=== PATIENT | female | born 1930 | race Caucasian/White ===

== ENCOUNTER 2016-11-17 15:28 | Inpatient (IN) ==
[2016-11-19] MEDS ORDERED: HALOPERIDOL 5 MG/ML INJECTION IVP PRN (05:00)
[2016-11-19] MEDS: D5-1/2NS 1,000 ML IV SCH ×2 (05:56→19:55)
[2016-11-19] MEDS: PANTOPRAZOLE 40 MG INJECTION IV SCH (09:25)
--- NOTE | 2016-11-19 10:54 | Progress Note ---
Subjective: Pt was comfortably sleeping with no respiratory distress or drolling. No stridor. Woke up and appear to be feeling pretty well. No complaints. Objective Vital signs: Temp Pulse Resp BP Pulse Ox 95.8 F L 69 14 140/65 H 95 11/19/16 08:00 11/19/16 08:00 11/19/16 08:00 11/19/16 08:00 11/19/16 08:00 Rhythm: Normal Sinus Rhythm Weight: 64.2 kg - Constitutional Present: no acute distress - Routine HEENT Exam Head: Present: normocephalic, atraumatic Eye: Present: EOMI ENT: Present: mucous membranes moist, oropharynx clear Comments: No stridor, no pooling of saliva. - Routine Respiratory Exam Absent: accessory muscle use, stridor, wheezes, crackles - Routine Cardiovascular Exam Present: RRR - Routine Abdominal Exam Present: soft - Routine Extremities Exam Absent: cyanosis, clubbing, edema, no edema - Routine Musculoskeletal Exam Musculoskeletal: no clubbing or cyanosis - Routine Skin Exam Present: intact - Routine Neurological Exam Present: alert, moving all extremities Pt noted to have advanced dementia. - Routine Psychiatric Exam Present: normal affect Results - Labs CBC & Chem 7: 11/19/16 04:29 11/19/16 04:29 Labs: Short CBC 11/17/16 11/19/16 Range/Units 14:20 04:29 WBC 9.2 7.4 (4.5-11.0) T/MM3 Hgb 10.5 L 11.0 L (12-16) GM/DL Hct 34.0 L 35.2 L (36-46) % Plt Count 245 226 (130-400) T/MM3 [facility] 11/17/16 11/18/16 11/19/16 14:20 04:32 04:29 Sodium 146 H 144 146 H Potassium 4.6 4.1 3.9 Chloride 109 H 107 107 Carbon Dioxide 26 28 30 BUN 28.0 H 19.0 H 9.0 Creatinine 1.5 H 1.2 D 1.2 Glucose 115 H 106 99 Calcium 8.8 8.6 8.9 Liver Function 11/17/16 Range/Units 14:20 Total Bilirubin 0.30 (0.20-1.30) MG/DL AST 18 (14-36) U/L ALT 31 (9-52) U/L Alkaline Phosphatase 118 (38-126) U/L Albumin 3.6 (3.5-5.0) G/DL Urine 11/17/16 Range/Units 14:20 Urine Color Yellow (YELLOW) Urine pH 5.5 (5.0-8.0) Ur Specific Royal 1.020 (1.015-1.025) Urine Protein Negative (NEGATIVE) Urine Glucose (UA) Negative (NEGATIVE) Assessment and Plan Assessment and Plan: This is an 86 YO that at some time swallowed a coin, and came to the ED for agitation. On initial exam pt was actually very pleasant and cooperative. She exibited profound memmory loss - C/W H/O dementia. She was not agitated or combative. She had no symptoms or signs of infection or of upper airway compromise. She had the foreign body removed by GI on 11/17 (Apparently a coin). CT soft tissues (Neck) done on 11/18 - showed upper esophageal thickening with narrowing of the lumen. Pt has not had any signs or symptoms of any upper airway compromise at present. Pt appears to be very comfortable. Diagnosis 1) S/P Removal of Foreign body on the upper esophagus. Pt has some upper esophageal thickening which is more likely due to inflammation, probably due to the foreign body - Pt apparently has also a hiatal hernia so this could also be related to GERD Plan - Cotinue with IV PPI - Close observation and monitoring for upper airway patency and possibility of infection. - Continue IV hydration. - Will check a Esophagogram with gastrograffin today. 2) HTN and has bene on Clonidine PO and ARB - On Clonidine patch BP is normal today. 3) Dementia, advanced reported "With behavioral disturbances" on admission but pt has been very calm and cooperative here. Pt has also H.O Bipolar dissorder so will renew Depakote once pt is re-imaged IF swelling is less. - Pt has been on low dose Depakote. and other medications for her dementia that have no IV equivalent. - Depakote level on admission was not on therepeutic range (50 - 100 usually) 4) Hypernatremia - improved with IVF 5) Elevated creatinine - improved with IVF. 6)FULL CODE PER DPOA. Sepsis Assessment - Evaluation Sepsis screening result: No Definite Risk - Focused Exam Vital Signs Temp Pulse Resp BP Pulse Ox 11/19/16 08:00 95.8 F L 69 14 140/65 H 95 Capillary refill: < 2-3 Seconds Hospital Course Summary Disclaimer: The visit summary below is not to be considered part of the above Progress Note.
[2016-11-19] MEDS ORDERED: DIATRIZOATE MEGLUMINE/SOD. (66%/10%) 120ml SOLN ONE (11:33)
--- NOTE | 2016-11-19 15:26 | Fluoroscopy Report ---
Indication:abnormal upper esophagus in soft tissue neck. Procedure:FL esophagram ESOPHAGRAM: Technique:The patient swallowed dilute Gastrografin with minimal difficulty. Ischemic imaging was obtained in the supine AP and right lateral positions. Due to the patient's limited mobility, no upright imaging was obtained. Findings:There is a sharp deviation of the esophagus near the thoracic inlet. There is also a short segment moderate stricture at this location. This mildly restricts the flow of contrast. Mild esophageal dysmotility is visualized. The patient has a partially intrathoracic stomach with organoaxial rotation, however, no volvulus is identified. Contrast flows through the stomach without difficulty. The remainder of the exam is negative. Impression: 1. 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 2. Mild esophageal dysmotility. 3. Partially intrathoracic stomach with organoaxial rotation without evidence of a true volvulus. Fluoroscopy dose: 38.72 mGy (Cumulative air kerma) Trenton Cesar RPA/MARCI performed this under my direct supervision. .
[2016-11-19] MEDS: MORPHINE SULFATE 2 MG SYRINGE IVP PRN ×2 (15:29→21:06)
[2016-11-20] MEDS: D5-1/2NS 1,000 ML IV SCH (09:02)
[2016-11-20] MEDS: PANTOPRAZOLE 40 MG INJECTION IV SCH (09:03)
[2016-11-20] MEDS ORDERED: IOHEXOL 300mg/ml 75ml INJECTION ONE (09:40)
[2016-11-20] MEDS ORDERED: NS 100 ML ONE (09:40)
[2016-11-20] MEDS ORDERED: SALINE FLUSH 10ml SYRINGE ONE (09:40)
--- NOTE | 2016-11-20 11:37 | CT Scan Report ---
Indication: eval esophageal stricture PROCEDURE: CT soft tissue neck w con: Encounter: Initial Comparison: Neck CT dated November 18, 2016 an esophagram dated November 19, 2016 Technique: Axial CT images were performed through the neck with intravenous contrast. Coronal and sagittal two-dimensional reformats Automated Exposure Control and Iterative Reconstruction dose reducing techniques were utilized. Contrast: Omnipaque 300 75 mL Findings: Mild apical emphysema. The parotid and submandibular glands appear normal. No adenopathy identified within the neck. No fluid collections or masses. The esophagus appears similar with a segment containing fluid and debris at the level of the thoracic inlet with acute rightward angulation. The distal esophageal segment is more narrow in caliber compared to the prior study. There is significant, artifact from the patient's pacemaker and external metallic ring on one of the patient's hands making evaluation of this area very difficult. There is less edema in this location however and there is oral contrast seen traversing this region. No evidence of esophageal perforation. No other findings of acute changes from the recent comparison. Impression: Improving edema at the site of prior retained foreign body in the upper thoracic esophagus at the thoracic inlet. There is less distention of the mid to lower thoracic esophagus as well. .
--- NOTE | 2016-11-20 14:08 | Progress Note ---
Subjective: Pt was comfortably sleeping with no respiratory distress or drolling. No stridor. Woke up and appear to be feeling pretty well, except for being cold. No stridor no SOB, no cough. Objective Vital signs: Temp Pulse Resp BP Pulse Ox 96.7 F L 64 20 139/66 95 11/20/16 11:26 11/20/16 11:26 11/20/16 11:26 11/20/16 11:26 11/20/16 11:26 Weight: 65.1 kg - Constitutional Present: no acute distress Results - Labs CBC & Chem 7: 11/20/16 04:46 11/20/16 04:46 Labs: Short CBC 11/20/16 Range/Units 04:46 WBC 7.9 (4.5-11.0) T/MM3 Hgb 10.8 L (12-16) GM/DL Hct 33.3 L (36-46) % Plt Count 224 (130-400) T/MM3 BMP 11/20/16 04:46 Sodium 145 H Potassium 3.5 L Chloride 106 Carbon Dioxide 28 BUN 7.0 Creatinine 1.1 Glucose 96 Calcium 8.7 Assessment and Plan Assessment and Plan: This is an 86 YO that at some time swallowed a coin, and came to the ED for agitation. On initial exam pt was actually very pleasant and cooperative. She exhibited profound memory loss - C/W H/O dementia. She was not agitated or combative. She had no symptoms or signs of infection or of upper airway compromise. She had the foreign body removed by GI on 11/17 (Apparently a coin). CT soft tissues (Neck) done on 11/18 - showed upper esophageal thickening with narrowing of the lumen. Pt has not had any signs or symptoms of any upper airway compromise at present. Remains afebrile. CT repeated shows less edema of the upper esophagus. Will resume PO feedings with close observation and D/C to [facility] wednesday. Diagnosis 1) S/P Removal of Foreign body on the upper esophagus. Pt has some upper esophageal thickening which is more likely due to inflammation, probably due to the foreign body - Pt apparently has also a hiatal hernia so this could also be related to GERD F/U CT (11/20) "..................................................... Findings: Mild apical emphysema. The parotid and submandibular glands appear normal. No adenopathy identified within the neck. No fluid collections or masses. The esophagus appears similar with a segment containing fluid and debris at the level of the thoracic inlet with acute rightward angulation. The distal esophageal segment is more narrow in caliber compared to the prior study. There is significant, artifact from the patient's pacemaker and external metallic ring on one of the patient's hands making evaluation of this area very difficult. There is less edema in this location however and there is oral contrast seen traversing this region. No evidence of esophageal perforation. No other findings of acute changes from the recent comparison. Impression: Improving edema at the site of prior retained foreign body in the upper thoracic esophagus at the thoracic inlet. There is less distention of the mid to lower thoracic esophagus as well. ...................................................." - CRP was high at 28.4 (0 -9 is normal). - Cotinue with IV PPI - Close observation and monitoring for upper airway patency and possibility of infection, despite the good radiologic progress. - D/C IVF 2) HTN and has bene on Clonidine PO and ARB * - On Clonidine patch with normal BP. 3) Dementia, advanced reported "With behavioral disturbances" on admission but pt has been very calm and cooperative here. Pt has also H.O Bipolar dissorder. No agitation does not appear to be manic or depressed currently so will hold off on Depakote (it is a large pill). - Pt has been on low dose Depakote. Will consider renewing on D/C - Depakote level on admission was not on therepeutic range (50 - 100 usually) 4) Hypernatremia -Resolved. 5) Elevated creatinine on admission, resolved. 6)FULL CODE PER DPOA. Sepsis Assessment - Evaluation Sepsis screening result: No Definite Risk - Focused Exam Vital Signs Temp Pulse Resp BP Pulse Ox 11/20/16 11:26 96.7 F L 64 20 139/66 95 11/20/16 07:36 62 20 129/58 11/20/16 04:00 97.6 F 60 16 151/62 H 96 Respiratory exam: Absent: accessory muscle use, stridor, wheezes, crackles Cardiovascular exam: Present: RRR Capillary refill: < 2-3 Seconds Hospital Course Summary Disclaimer: The visit summary below is not to be considered part of the above Progress Note.
[2016-11-21] MEDS: MORPHINE SULFATE 2 MG SYRINGE IVP PRN ×2 (01:02→12:32)
[2016-11-21] MEDS: PANTOPRAZOLE 40 MG INJECTION IV SCH (09:53)
--- NOTE | 2016-11-21 12:26 | Progress Note ---
Subjective: Patient is seen this morning while resting in bed with sitter staff at the bedside. As been somewhat drowsy today as she was given morphine overnight. Nursing staff does report she ate approximately 25% of her breakfast which was a soft diet. She has tolerated thickened liquid fluids. Staff did note one episode of coughing this morning. Not appear to be in any acute distress. Is maintaining her air way adequately. <Jie Zuleta V - 11/21/16 12:39> Objective Vital signs: Temp Pulse Resp BP Pulse Ox 96.9 F 63 16 94/47 91 11/21/16 16:00 11/21/16 16:00 11/21/16 16:00 11/21/16 16:00 11/21/16 16:00 <WatkinsWei - 11/21/16 18:12> Temp Pulse Resp BP Pulse Ox 96.3 F L 67 14 117/56 91 11/21/16 08:11 11/21/16 08:11 11/21/16 08:11 11/21/16 08:11 11/21/16 08:11 <Jie Zuleta V - 11/21/16 12:39> Weight: 64.6 kg <Jie Zuleta V 11/21/16 12:39> - Constitutional Present: no acute distress <Jie Zuleta V 11/21/16 12:39> - Routine HEENT Exam Eye: Present: EOMI, PERRL <Jie Zuleta V 11/21/16 12:39> - Routine Respiratory Exam Present: CTA bilaterally <Jie Zuleta V 11/21/16 12:39> - Routine Cardiovascular Exam Present: RRR, S1, S2 <Jie Zuleta V 11/21/16 12:39> - Routine Abdominal Exam Present: soft, normoactive bowel sounds <Jie Zuleta V 11/21/16 12:39> - Routine Skin Exam Present: intact <Jie Zuleta V 11/21/16 12:39> - Routine Neurological Exam Present: alert, CN II-XII intact <Jie Zuleta V 11/21/16 12:39> - Routine Psychiatric Exam Comments: Confused related to dementia <Jie Zuleta V 11/21/16 12:39> Results - Labs CBC & Chem 7: 11/21/16 04:46 11/21/16 04:46 <Andrew Watkinso - 11/21/16 18:12> Labs: Short CBC 11/21/16 Range/Units 04:46 WBC 8.4 (4.5-11.0) T/MM3 Hgb 10.8 L (12-16) GM/DL Hct 34.2 L (36-46) % Plt Count 219 (130-400) T/MM3 [facility] 11/21/16 04:46 Sodium 147 H Potassium 4.1 Chloride 108 H Carbon Dioxide 29 BUN 7.0 Creatinine 1.1 Glucose 94 Calcium 9.0 <WatkinsWei - 11/21/16 18:12> Short CBC 11/21/16 Range/Units 04:46 WBC 8.4 (4.5-11.0) T/MM3 Hgb 10.8 L (12-16) GM/DL Hct 34.2 L (36-46) % Plt Count 219 (130-400) T/MM3 [facility] 11/21/16 04:46 Sodium 147 H Potassium 4.1 Chloride 108 H Carbon Dioxide 29 BUN 7.0 Creatinine 1.1 Glucose 94 Calcium 9.0 <SongJie V - 11/21/16 12:39> Assessment and Plan (1) Esophageal foreign body Current visit: Yes Status: Resolved (2) Esophageal edema Current visit: Yes Status: Acute (3) Hypertension Current visit: Yes Status: Chronic (4) Dementia Current visit: Yes Status: Chronic <SongJie V - 11/21/16 12:22> (1) Esophageal foreign body Current visit: Yes Status: Resolved (2) Esophageal edema Current visit: Yes Status: Acute (3) Hypertension Current visit: Yes Status: Chronic (4) Dementia Current visit: Yes Status: Chronic <Wei Watkins - 11/21/16 18:12> Assessment and Plan: Agree with above. Pt seen and examined with no findings for any distress. She has no stridor, no respiratory distress, or tachypnea. Plan - As above - check CRP that should be coming down. Continue with soft mechanical diet. May need repeat EGD in several weeks per GI sales and leasing consultant. <Wei Watkins - 11/21/16 18:12> 6/3 Overall stable. She is eating and drinking without evidence of difficulty She has not taking any PO pills. Discussed with nursing staff would have to crush meds if ordered Ct Scan recheck of neck yesterday did indicate improvement in edema of the upper thoracic esophagus and thoracic inlet. She was evaluated by speech therapy and is currently tolerating soft diet. Recheck CRP tomorrow morning Hopeful to be able to advance diet further Will discuss further with attending, Dr Watkins <Jie Zuleta V - 11/21/16 12:39> Sepsis Assessment - Evaluation Sepsis screening result: No Definite Risk <Jie Zuleta V - 11/21/16 12:39> - Focused Exam Vital Signs Temp Pulse Resp BP Pulse Ox 11/21/16 16:00 96.9 F 63 16 94/47 91 11/21/16 12:40 97.1 F 65 22 112/53 92 11/21/16 08:11 96.3 F L 67 14 117/56 91 <Wei Watkins - 11/21/16 18:12> Vital Signs Temp Pulse Resp BP Pulse Ox 11/21/16 08:11 96.3 F L 67 14 117/56 91 11/21/16 05:12 96.7 F L 74 16 122/59 87 L <Jie Zuleta V - 11/21/16 12:39> Respiratory exam: Absent: accessory muscle use, stridor, wheezes, crackles < Jie Zuleta V - 11/21/16 12:39> Cardiovascular exam: Present: RRR <Jie Zuleta V - 11/21/16 12:39> Capillary refill: < 2-3 Seconds <Jie Zuleta V 11/21/16 12:39> Hospital Course Summary Disclaimer: The visit summary below is not to be considered part of the above Progress Note. <Wei Watkins - 11/21/16 18:12> The visit summary below is not to be considered part of the above Progress Note. <Jie Zuleta V 11/21/16 12:39> Hospital Course: 11/21 Overall stable. She is eating and drinking without evidence of difficulty She has not taking any PO pills. Discussed with nursing staff would have to crush meds if ordered Ct Scan recheck of neck yesterday did indicate improvement in edema of the upper thoracic esophagus and thoracic inlet. She was evaluated by speech therapy and is currently tolerating soft diet. Recheck CRP tomorrow morning Hopeful to be able to advance diet further Will discuss further with attending, Dr Watkins 11/20 This is an 86 YO that at some time swallowed a coin, and came to the ED for agitation. On initial exam pt was actually very pleasant and cooperative. She exhibited profound memory loss - C/W H/O dementia. She was not agitated or combative. She had no symptoms or signs of infection or of upper airway compromise. She had the foreign body removed by GI on 11/17 (Apparently a coin). CT soft tissues (Neck) done on 11/18 - showed upper esophageal thickening with narrowing of the lumen. Pt has not had any signs or symptoms of any upper airway compromise at present. Remains afebrile. CT repeated shows less edema of the upper esophagus. Will resume PO feedings with close observation and D/C to [facility] wednesday. Diagnosis 1) S/P Removal of Foreign body on the upper esophagus. Pt has some upper esophageal thickening which is more likely due to inflammation, probably due to the foreign body - Pt apparently has also a hiatal hernia so this could also be related to GERD F/U CT (11/20) "..................................................... Findings: Mild apical emphysema. The parotid and submandibular glands appear normal. No adenopathy identified within the neck. No fluid collections or masses. The esophagus appears similar with a segment containing fluid and debris at the level of the thoracic inlet with acute rightward angulation. The distal esophageal segment is more narrow in caliber compared to the prior study. There is significant, artifact from the patient's pacemaker and external metallic ring on one of the patient's hands making evaluation of this area very difficult. There is less edema in this location however and there is oral contrast seen traversing this region. No evidence of esophageal perforation. No other findings of acute changes from the recent comparison. Impression: Improving edema at the site of prior retained foreign body in the upper thoracic esophagus at the thoracic inlet. There is less distention of the mid to lower thoracic esophagus as well. ...................................................." - CRP was high at 28.4 (0 -9 is normal). - Cotinue with IV PPI - Close observation and monitoring for upper airway patency and possibility of infection, despite the good radiologic progress. - D/C IVF 2) HTN and has bene on Clonidine PO and ARB * - On Clonidine patch with normal BP. 3) Dementia, advanced reported "With behavioral disturbances" on admission but pt has been very calm and cooperative here. Pt has also H.O Bipolar dissorder. No agitation does not appear to be manic or depressed currently so will hold off on Depakote (it is a large pill). - Pt has been on low dose Depakote. Will consider renewing on D/C - Depakote level on admission was not on therepeutic range (50 - 100 usually) 4) Hypernatremia -Resolved. 5) Elevated creatinine on admission, resolved. 6)FULL CODE PER DPOA. 11/21/16 12:38 <Jie Zuleta V - 11/21/16 12:39>
[2016-11-22] MEDS: MORPHINE SULFATE 2 MG SYRINGE IVP PRN ×2 (02:09→14:30)
[2016-11-22] MEDS: SALINE FLUSH 10ml SYRINGE IV PRN ×2 (02:12→09:46)
[2016-11-22] MEDS: PANTOPRAZOLE 40 MG INJECTION IV SCH (09:44)
[2016-11-22] MEDS ORDERED: Pharmacy Consult for Fall Risk XX PRN (10:27)
--- NOTE | 2016-11-22 16:04 | Progress Note ---
Subjective: Pt appears to be very stable today. Has been tolerating well PO with non- tickened liquids but sometimes will get a cough. Objective Vital signs: Temp Pulse Resp BP Pulse Ox 98.7 F 60 20 92/45 92 11/22/16 13:00 11/22/16 13:00 11/22/16 13:00 11/22/16 13:00 11/22/16 13:00 Rhythm: Normal Sinus Rhythm Weight: 65.6 kg - Constitutional Present: no acute distress, thin - Routine HEENT Exam Head: Present: normocephalic, atraumatic Eye: Present: EOMI, PERRL ENT: Present: mucous membranes moist - Routine Cardiovascular Exam Present: RRR - Routine Abdominal Exam Present: soft, non distended, non tender - Routine Extremities Exam Absent: cyanosis, clubbing, edema - Routine Musculoskeletal Exam Musculoskeletal: no clubbing or cyanosis - Routine Neurological Exam Pleasantly confused - not agitated. - Routine Psychiatric Exam Comments: Not agitated. Disoriented - advanced dementia Results - Labs CBC & Chem 7: 11/22/16 04:15 11/22/16 04:15 Labs: Short CBC 11/22/16 Range/Units 04:15 WBC 7.8 (4.5-11.0) T/MM3 Hgb 10.7 L (12-16) GM/DL Hct 33.8 L (36-46) % Plt Count 237 (130-400) T/MM3 [facility] 11/22/16 04:15 Sodium 144 Potassium 3.7 Chloride 108 H Carbon Dioxide 26 BUN 12.0 D Creatinine 1.3 H D Glucose 143 H Calcium 8.8 Assessment and Plan (1) Esophageal foreign body Current visit: Yes Status: Resolved (2) Esophageal edema Current visit: Yes Status: Acute (3) Hypertension Current visit: Yes Status: Chronic (4) Dementia Current visit: Yes Status: Chronic Assessment and Plan: This is an 86 YO that at some time swallowed a coin, and came to the ED for agitation. On initial exam pt was actually very pleasant and cooperative. She exhibited profound memory loss - C/W H/O dementia. She was not agitated or combative. She had no symptoms or signs of infection or of upper airway compromise. She had the foreign body removed by GI on 11/17 (Apparently a coin). CT soft tissues (Neck) done on 11/18 - showed upper esophageal thickening with narrowing of the lumen. Pt has not had any signs or symptoms of any upper airway compromise at present. Remains afebrile. CT repeated shows less edema of the upper esophagus. She was cleared by speech pathology to be started on a diet after the gastrograffin esophagogram showed that pt was able to swallow and was not aspirating. Per GI attending pt should be watched as inpatient several more days. Diagnosis 1) S/P Removal of Foreign body on the upper esophagus. Pt has some upper esophageal thickening which is more likely due to inflammation, probably due to the foreign body - Pt apparently has also a hiatal hernia so this could also be related to GERD. Repeat CT showed improvement. F/U CT (11/20) "..................................................... Findings: Mild apical emphysema. The parotid and submandibular glands appear normal. No adenopathy identified within the neck. No fluid collections or masses. The esophagus appears similar with a segment containing fluid and debris at the level of the thoracic inlet with acute rightward angulation. The distal esophageal segment is more narrow in caliber compared to the prior study. There is significant, artifact from the patient's pacemaker and external metallic ring on one of the patient's hands making evaluation of this area very difficult. There is less edema in this location however and there is oral contrast seen traversing this region. No evidence of esophageal perforation. No other findings of acute changes from the recent comparison. Impression: Improving edema at the site of prior retained foreign body in the upper thoracic esophagus at the thoracic inlet. There is less distention of the mid to lower thoracic esophagus as well. ...................................................." - CRP was high at 28.4 (0 -9 is normal), repeat CRP is still elevated. - Cotinue with IV PPI - Close observation and monitoring for upper airway patency and possibility of infection, despite the good radiologic progress. - Per Gi solar consultant - pt should be given 2 to 3 weeks for upper esophageal inflammation for improve and then be rescoped to better address upper esophageal stricture. 2) HTN and has been on Clonidine PO and ARB * - On Clonidine patch with low BP today. - Will hydrate gently 3) Dementia, advanced reported "With behavioral disturbances" on admission but pt has been very calm and cooperative here. Pt has also H.O Bipolar dissorder. No agitation does not appear to be manic or depressed currently so will hold off on Depakote (it is a large pill). - Pt has been on low dose Depakote. Will consider renewing on D/C - Depakote level on admission was not on therepeutic range (50 - 100 usually) 4) Hypernatremia -Resolved. 5) Elevated creatinine on admission, resolved. 6)FULL CODE PER DPOA. Sepsis Assessment - Evaluation Sepsis screening result: No Definite Risk - Focused Exam Vital Signs Temp Pulse Resp BP Pulse Ox 11/22/16 13:00 98.7 F 60 20 92/45 92 11/22/16 09:00 98.6 F 60 16 90/45 90 11/22/16 05:26 60 20 102/54 92 11/22/16 04:24 98.3 F 60 20 103/44 92 Respiratory exam: Absent: accessory muscle use, stridor, wheezes, crackles Cardiovascular exam: Present: RRR Capillary refill: < 2-3 Seconds Hospital Course Summary Disclaimer: The visit summary below is not to be considered part of the above Progress Note. Hospital Course: 11/21 Overall stable. She is eating and drinking without evidence of difficulty She has not taking any PO pills. Discussed with nursing staff would have to crush meds if ordered Ct Scan recheck of neck yesterday did indicate improvement in edema of the upper thoracic esophagus and thoracic inlet. She was evaluated by speech therapy and is currently tolerating soft diet. Recheck CRP tomorrow morning Hopeful to be able to advance diet further Will discuss further with attending, Dr Watkins 11/20 This is an 86 YO that at some time swallowed a coin, and came to the ED for agitation. On initial exam pt was actually very pleasant and cooperative. She exhibited profound memory loss - C/W H/O dementia. She was not agitated or combative. She had no symptoms or signs of infection or of upper airway compromise. She had the foreign body removed by GI on 11/17 (Apparently a coin). CT soft tissues (Neck) done on 11/18 - showed upper esophageal thickening with narrowing of the lumen. Pt has not had any signs or symptoms of any upper airway compromise at present. Remains afebrile. CT repeated shows less edema of the upper esophagus. Will resume PO feedings with close observation and D/C to [facility] wednesday. Diagnosis 1) S/P Removal of Foreign body on the upper esophagus. Pt has some upper esophageal thickening which is more likely due to inflammation, probably due to the foreign body - Pt apparently has also a hiatal hernia so this could also be related to GERD F/U CT (11/20) "..................................................... Findings: Mild apical emphysema. The parotid and submandibular glands appear normal. No adenopathy identified within the neck. No fluid collections or masses. The esophagus appears similar with a segment containing fluid and debris at the level of the thoracic inlet with acute rightward angulation. The distal esophageal segment is more narrow in caliber compared to the prior study. There is significant, artifact from the patient's pacemaker and external metallic ring on one of the patient's hands making evaluation of this area very difficult. There is less edema in this location however and there is oral contrast seen traversing this region. No evidence of esophageal perforation. No other findings of acute changes from the recent comparison. Impression: Improving edema at the site of prior retained foreign body in the upper thoracic esophagus at the thoracic inlet. There is less distention of the mid to lower thoracic esophagus as well. ...................................................." - CRP was high at 28.4 (0 -9 is normal). - Cotinue with IV PPI - Close observation and monitoring for upper airway patency and possibility of infection, despite the good radiologic progress. - D/C IVF 2) HTN and has bene on Clonidine PO and ARB * - On Clonidine patch with normal BP. 3) Dementia, advanced reported "With behavioral disturbances" on admission but pt has been very calm and cooperative here. Pt has also H.O Bipolar dissorder. No agitation does not appear to be manic or depressed currently so will hold off on Depakote (it is a large pill). - Pt has been on low dose Depakote. Will consider renewing on D/C - Depakote level on admission was not on therepeutic range (50 - 100 usually) 4) Hypernatremia -Resolved. 5) Elevated creatinine on admission, resolved. 6)FULL CODE PER DPOA. 11/21/16 12:38
[2016-11-22] MEDS: NS 1,000 ML IV SCH (19:08)
[2016-11-23] MEDS: PANTOPRAZOLE 40 MG INJECTION IV SCH (08:40)
[2016-11-23] MEDS: SALINE FLUSH 10ml SYRINGE IV PRN (08:40)
[2016-11-23] MEDS: NS 1,000 ML IV SCH (08:41)
--- NOTE | 2016-11-23 11:52 | Progress Note ---
Subjective: Dario is seen this morning following breakfast. Nursing staff at the bedside report that she ate an omelette/scrambled eggs, however, is supposed to be on a pured diet. Staff also reported she appears like she is having pain with swallowing. She otherwise does not appear to be in any distress. She is maintaining adequate room air saturations. On examination she is nonverbal. <Jie Zuleta V 11/23/16 11:55> Objective Vital signs: Temp Pulse Resp BP Pulse Ox 97.4 F 65 24 123/57 91 11/23/16 15:47 11/23/16 15:47 11/23/16 15:47 11/23/16 15:47 11/23/16 07:32 <Anshul Mora D - 11/23/16 16:55> Temp Pulse Resp BP Pulse Ox 97.6 F 60 20 127/59 91 11/23/16 11:42 11/23/16 11:42 11/23/16 11:42 11/23/16 11:42 11/23/16 07:32 <SongJie Valentin 11/23/16 11:55> Weight: 65.2 kg <Jie Zuleta V 11/23/16 11:55> - Constitutional Present: no acute distress, thin <Jie Zuleta V 11/23/16 11:55> - Routine HEENT Exam Head: Present: normocephalic <SongJie Valentin 11/23/16 11:55> Eye: Present: EOMI, PERRL <SongJie Valentin 11/23/16 11:55> ENT: Present: mucous membranes moist <SongJie Valentin 11/23/16 11:55> - Routine Respiratory Exam Present: CTA bilaterally <Jie Zuleta V 11/23/16 11:55> - Routine Cardiovascular Exam Present: RRR, S1, S2 <SongJie Valentin 11/23/16 11:55> - Routine Abdominal Exam Present: soft, normoactive bowel sounds <SongJie Valentin 11/23/16 11:55> - Routine Extremities Exam Present: full ROM, pulses intact <SongJie Valentin 11/23/16 11:55> - Routine Back/Spine/Pelvis Exam Back/Spine: Present: full ROM <Jie Zuleta V - 11/23/16 11:55> - Routine Musculoskeletal Exam Musculoskeletal: no clubbing or cyanosis, no tenderness <Jie Zuleta V 11/04 11:55> - Routine Skin Exam Present: intact <Jie Zuleta V 11/23/16 11:55> - Routine Neurological Exam Present: alert, CN II-XII intact, altered mental status (Chronic Dementia) < Jie Zuleta V 11/23/16 11:55> Results - Labs CBC & Chem 7: 11/23/16 04:50 11/23/16 04:50 <AbbyAnshul arauz Karen - 11/23/16 16:55> Labs: Short CBC 11/23/16 Range/Units 04:50 WBC 7.5 (4.5-11.0) T/MM3 Hgb 9.9 L (12-16) GM/DL Hct 32.3 L (36-46) % Plt Count 207 (130-400) T/MM3 [facility] 11/23/16 04:50 Sodium 143 Potassium 3.7 Chloride 110 H Carbon Dioxide 25 BUN 17.0 Creatinine 1.1 D Glucose 95 Calcium 8.4 <AbbyAnshul hanks Karen - 11/23/16 16:55> Short CBC 11/23/16 Range/Units 04:50 WBC 7.5 (4.5-11.0) T/MM3 Hgb 9.9 L (12-16) GM/DL Hct 32.3 L (36-46) % Plt Count 207 (130-400) T/MM3 [facility] 11/23/16 04:50 Sodium 143 Potassium 3.7 Chloride 110 H Carbon Dioxide 25 BUN 17.0 Creatinine 1.1 D Glucose 95 Calcium 8.4 <Jie Zuleta V 11/23/16 11:55> Assessment and Plan (1) Esophageal foreign body Current visit: Yes Status: Resolved (2) Esophageal edema Current visit: Yes Status: Acute (3) Hypertension Current visit: Yes Status: Chronic (4) Dementia Current visit: Yes Status: Chronic (5) Anemia Current visit: Yes Status: Chronic <AbbyAnshul arauz Karen - 11/23/16 16:55> (1) Esophageal foreign body Current visit: Yes Status: Resolved (2) Esophageal edema Current visit: Yes Status: Acute (3) Hypertension Current visit: Yes Status: Chronic (4) Dementia Current visit: Yes Status: Chronic (5) Anemia Current visit: Yes Status: Chronic <Jie Zuleta V - 11/23/16 11:49> Assessment and Plan: Have independently interviewed and examined pt. Chart reviewed. Case discussed with CM, nursing, and my [employer]. Care plan developed with my supervision; agree with above. Doing okay overall. Oral drive increasing. Nursing notes she is taking in about 50% of what's offer; does need help with eating (encouragement). Some discomfort with swallow this morning, but did better at lunch. No nausea. Breathing well-reports slight congestion. Does have discomfort to back. Nursing report no behavioral issues. Lungs: clear bilaterally CV: regular AB: soft nt/nd +BS MSE: awake alert appropriate. Plan: Generation screen placed - pt not candidate for inpatient psych treatment. Continue with soft diet. Continue Protonix for esophageal protection. Will decrease IVF to 50cc/hr. Possible discharge to her care facility in near future if able to maintain oral intake and no behavioral issues arise. Time spent with pt care 25 minutes. <Anshul Mora - 11/23/16 16:55> 11/23 Requested reevaluation by speech therapy given some concern for appropriate diet. Although diet order does state regular diet, modifiers do indicate Consistency. Dietary consultation placed to evaluate patient's caloric intake and needs. She does appear to be tolerating oral intake without difficulty Generations screen completed this morning. She does not meet any acute criteria for inpatient psychiatric treatment Laboratory studies have remained stable. Hemoglobin slightly down at 9.9. Electro-lytes and renal function normal. Vital signs are unremarkable. Will discuss continued plan and orders with attending, Dr. Mora <Jie Zuleta 11/23/16 11:55> Sepsis Assessment - Evaluation Sepsis screening result: No Definite Risk <Jie Zuleta 11/23/16 11:55> - Focused Exam Vital Signs Temp Pulse Resp BP Pulse Ox 11/23/16 15:47 97.4 F 65 24 123/57 11/23/16 11:42 97.6 F 60 20 127/59 11/23/16 07:32 96.8 F 69 20 117/57 91 <Anshul Mora - 11/23/16 16:55> Vital Signs Temp Pulse Resp BP Pulse Ox 11/23/16 11:42 97.6 F 60 20 127/59 11/23/16 07:32 96.8 F 69 20 117/57 91 11/23/16 04:00 97.2 F 66 18 117/48 93 11/23/16 00:00 95.6 F L 60 20 108/47 92 <Jie Zuleta V - 11/23/16 11:55> Respiratory exam: Absent: accessory muscle use, stridor, wheezes, crackles < Jie Zuleta V - 11/23/16 11:55> Cardiovascular exam: Present: RRR <Jie Zuleta V - 11/23/16 11:55> Capillary refill: < 2-3 Seconds <Jie Zuleta V - 11/23/16 11:55> Hospital Course Summary Disclaimer: The visit summary below is not to be considered part of the above Progress Note. <Anshul Mora - 11/23/16 16:55> The visit summary below is not to be considered part of the above Progress Note. <Jie Zuleta V - 11/23/16 11:55> Hospital Course: 11/23 Requested reevaluation by speech therapy given some concern for appropriate diet. Although diet order does state regular diet, modifiers do indicate Consistency. Dietary consultation placed to evaluate patient's caloric intake and needs. Generations screen completed this morning. She does not meet any acute criteria for inpatient psychiatric treatment She does appear to be tolerating oral intake without difficulty Laboratory studies have remained stable. Hemoglobin slightly down at 9.9. Electro-lytes and renal function normal. Vital signs are unremarkable. Will discuss continued plan and orders with attending, Dr. Mora 11/21 Overall stable. She is eating and drinking without evidence of difficulty She has not taking any PO pills. Discussed with nursing staff would have to crush meds if ordered Ct Scan recheck of neck yesterday did indicate improvement in edema of the upper thoracic esophagus and thoracic inlet. She was evaluated by speech therapy and is currently tolerating soft diet. Recheck CRP tomorrow morning Hopeful to be able to advance diet further Will discuss further with attending, Dr Watkins 11/20 This is an 86 YO that at some time swallowed a coin, and came to the ED for agitation. On initial exam pt was actually very pleasant and cooperative. She exhibited profound memory loss - C/W H/O dementia. She was not agitated or combative. She had no symptoms or signs of infection or of upper airway compromise. She had the foreign body removed by GI on 11/17 (Apparently a coin). CT soft tissues (Neck) done on 11/18 - showed upper esophageal thickening with narrowing of the lumen. Pt has not had any signs or symptoms of any upper airway compromise at present. Remains afebrile. CT repeated shows less edema of the upper esophagus. Will resume PO feedings with close observation and D/C to [facility] wednesday. Diagnosis 1) S/P Removal of Foreign body on the upper esophagus. Pt has some upper esophageal thickening which is more likely due to inflammation, probably due to the foreign body - Pt apparently has also a hiatal hernia so this could also be related to GERD F/U CT (11/20) "..................................................... Findings: Mild apical emphysema. The parotid and submandibular glands appear normal. No adenopathy identified within the neck. No fluid collections or masses. The esophagus appears similar with a segment containing fluid and debris at the level of the thoracic inlet with acute rightward angulation. The distal esophageal segment is more narrow in caliber compared to the prior study. There is significant, artifact from the patient's pacemaker and external metallic ring on one of the patient's hands making evaluation of this area very difficult. There is less edema in this location however and there is oral contrast seen traversing this region. No evidence of esophageal perforation. No other findings of acute changes from the recent comparison. Impression: Improving edema at the site of prior retained foreign body in the upper thoracic esophagus at the thoracic inlet. There is less distention of the mid to lower thoracic esophagus as well. ...................................................." - CRP was high at 28.4 (0 -9 is normal). - Cotinue with IV PPI - Close observation and monitoring for upper airway patency and possibility of infection, despite the good radiologic progress. - D/C IVF 2) HTN and has bene on Clonidine PO and ARB * - On Clonidine patch with normal BP. 3) Dementia, advanced reported "With behavioral disturbances" on admission but pt has been very calm and cooperative here. Pt has also H.O Bipolar dissorder. No agitation does not appear to be manic or depressed currently so will hold off on Depakote (it is a large pill). - Pt has been on low dose Depakote. Will consider renewing on D/C - Depakote level on admission was not on therepeutic range (50 - 100 usually) 4) Hypernatremia -Resolved. 5) Elevated creatinine on admission, resolved. 6)FULL CODE PER DPOA. 11/21/16 12:38 11/23/16 11:52 11/23/16 11:53 11/23/16 11:55 <Jie Zuleta V - 11/23/16 11:55>
[2016-11-23] MEDS: ACETAMINOPHEN 500 MG TABLET PO PRN (14:11)
[2016-11-23] MEDS ORDERED: NS 1,000 ML IV SCH (17:30)
[2016-11-24] MEDS: ACETAMINOPHEN 500 MG TABLET PO PRN (00:10)
[2016-11-24] MEDS: MORPHINE SULFATE 2 MG SYRINGE IVP PRN (03:02)
[2016-11-24] MEDS: PANTOPRAZOLE 40 MG INJECTION IV SCH (09:03)
[2016-11-24] MEDS: SALINE FLUSH 10ml SYRINGE IV PRN ×2 (09:03→09:24)
--- NOTE | 2016-11-24 12:51 | Progress Note ---
Subjective: Dario was seen while eating lunch. She states that her throat is feeling better and it will "just take time". She reports sleeping well last night, but the overnight nursing note reports that she was trying to get out of bed or remove her IV multiple times throghout the shift. She continues to require 1:1 care. She also has a heating pack to her back and points to her right medial scapular border - pain improved with light massage. <Sofía Iqbal 11/24/16 12:58> Objective Vital signs: Temp Pulse Resp BP Pulse Ox 97.1 F 70 16 133/65 93 11/24/16 12:00 11/24/16 12:00 11/24/16 12:00 11/24/16 12:00 11/24/16 12:00 <Anshul Mora 11/24/16 14:24> Temp Pulse Resp BP Pulse Ox 97.1 F 70 16 133/65 93 11/24/16 12:00 11/24/16 12:00 11/24/16 12:00 11/24/16 12:00 11/24/16 12:00 <Sofía Iqbal 11/24/16 12:58> Height: 1.52 m <Sofía Iqbal 11/24/16 12:58> Weight: 64.864 kg <Sofía Iqbal 11/24/16 12:58> Body Mass Index: 27.9 <Sofía Iqbal 11/24/16 12:58> - Constitutional Present: no acute distress, thin <Sfoía Iqbal 11/24/16 12:58> - Routine HEENT Exam Eye: Absent: conjunctival icterus, scleral injection <Sofía Iqbal 12:58> ENT: Present: mucous membranes moist <Sofía Iqbal 11/24/16 12:58> - Routine Respiratory Exam Present: CTA bilaterally <Sofía Iqbal 11/24/16 12:58> - Routine Cardiovascular Exam Present: S1, S2 <Sofía Iqbal 11/24/16 12:58> - Routine Abdominal Exam Present: soft, non distended, non tender <Sofía Iqbal 11/24/16 12:58> - Routine Extremities Exam Absent: no edema <FaridaSofía owens Karen 11/24/16 12:58> - Routine Skin Exam Present: intact, dry, warm <Sofía Iqbal Karen 11/24/16 12:58> - Routine Neurological Exam Present: alert (to person) <FaridaSofía owens Karen 11/24/16 12:58> - Routine Psychiatric Exam Present: normal affect. Absent: good judgment <FaridaHelio owensestrada Jones 11/24/16 12: 58> Results - Labs CBC & Chem 7: 11/24/16 04:30 11/24/16 04:30 <Anshul Mora 11/24/16 14:24> Labs: Short CBC 11/24/16 Range/Units 04:30 WBC 6.6 (4.5-11.0) T/MM3 Hgb 9.9 L (12-16) GM/DL Hct 31.0 L (36-46) % Plt Count 207 (130-400) T/MM3 [facility] 11/24/16 04:30 Sodium 146 H Potassium 3.5 L Chloride 112 H Carbon Dioxide 26 BUN 12.0 Creatinine 1.0 Glucose 87 Calcium 8.8 <Anshul Mora 11/24/16 14:24> Short CBC 11/24/16 Range/Units 04:30 WBC 6.6 (4.5-11.0) T/MM3 Hgb 9.9 L (12-16) GM/DL Hct 31.0 L (36-46) % Plt Count 207 (130-400) T/MM3 [facility] 11/24/16 04:30 Sodium 146 H Potassium 3.5 L Chloride 112 H Carbon Dioxide 26 BUN 12.0 Creatinine 1.0 Glucose 87 Calcium 8.8 <FaridaSofía owens Karen 11/24/16 12:58> Assessment and Plan (1) Esophageal foreign body Current visit: Yes Status: Resolved (2) Esophageal edema Current visit: Yes Status: Acute (3) Hypertension Current visit: Yes Status: Chronic (4) Dementia Current visit: Yes Status: Chronic (5) Anemia Current visit: Yes Status: Chronic (6) Hypokalemia Current visit: Yes Status: Acute (7) Hypernatremia Current visit: Yes Status: Acute <Sofía Iqbal - 11/24/16 12:45> (1) Esophageal foreign body Problem details: 11/17: Pharygoscopy with removal of round foreign body from esophageal inlet - [place] Current visit: Yes Status: Resolved (2) Esophageal edema Problem details: Secondary to foreign body Current visit: Yes Status: Acute (3) Hypertension Current visit: Yes Status: Chronic (4) Dementia Current visit: Yes Status: Chronic (5) Anemia Current visit: Yes Status: Chronic (6) Hypernatremia Problem details: POA Current visit: Yes Status: Acute (7) Hypokalemia Problem details: Not POA Current visit: Yes Status: Acute (8) Hypothyroidism Current visit: Yes Status: Chronic (9) Osteoarthritis Current visit: Yes Status: Chronic (10) Bipolar affective disorder Current visit: Yes Status: Chronic (11) GERD (gastroesophageal reflux disease) Current visit: Yes Status: Chronic (12) Overweight Current visit: Yes Status: Chronic <Anshul Mora - 11/24/16 14:24> Assessment and Plan: Have independently interviewed and examined pt. Chart reviewed. Case discussed with CM, Dr Biswas, and my CAR OILER. Care plan developed with my supervision; agree with above. Resting this afternoon. Doing better with oral intake, not having pain. Breathing stable. Lungs: clear, no distress on RA CV: regular AB: soft nt/nd +BS EXT: no edema Plan: Continue with IV Protonix to help with decrease acid in light of GERD and esophageal edema due to foreign body. Continue soft diet to allow for easier passage of foods - need to continue for several weeks. Change IVF to 1/2NS with 20 KCl due to hypernatremia/hypokalemia. Will restart home medications as taking oral better. Stop Catapres patch due to initiation of oral catapress and ARB. Recheck BMP in am due to IVF use and medications. Anticipate home tomorrow if continue to see improvement of oral intake. In discussion with Dr Biswas, he recommends EGD in about 4 weeks (need to allow for edema to subside prior to intervention). Could be done with him of endoscopist of PCP preference. Time spent with patient care 25 minutes. <Anshul Mora - 11/24/16 14:24> Esophageal FB -pain improving -tolerating soft diet Hypokalemia -give K oral liquid Hypernatremia -stop NS Will discuss dc plans with Dr. Mora. <Soífa Iqbal - 11/24/16 12:58> Sepsis Assessment - Evaluation Sepsis screening result: No Definite Risk <Sofía Iqbal - 11/24/16 12:58> - Focused Exam Vital Signs Temp Pulse Resp BP Pulse Ox 11/24/16 12:00 97.1 F 70 16 133/65 93 11/24/16 08:00 97.4 F 60 16 147/68 H 97 11/24/16 04:00 96.5 F L 61 16 145/63 H 98 <Anshul Mora - 11/24/16 14:24> Vital Signs Temp Pulse Resp BP Pulse Ox 11/24/16 12:00 97.1 F 70 16 133/65 93 11/24/16 08:00 97.4 F 60 16 147/68 H 97 11/24/16 04:00 96.5 F L 61 16 145/63 H 98 <Sofía Iqbal - 11/24/16 12:58> Respiratory exam: Absent: accessory muscle use, stridor, wheezes, crackles < Sofía Iqbal - 11/24/16 12:58> Cardiovascular exam: Present: RRR <Sofía Iqbal - 11/24/16 12:58> Capillary refill: < 2-3 Seconds <Sofía Iqbal - 11/24/16 12:58> Hospital Course Summary Disclaimer: The visit summary below is not to be considered part of the above Progress Note. <Anshul Mora - 11/24/16 14:24> The visit summary below is not to be considered part of the above Progress Note. <Sofía Iqbal - 11/24/16 12:58> Hospital Course: 11/23 Requested reevaluation by speech therapy given some concern for appropriate diet. Although diet order does state regular diet, modifiers do indicate Consistency. Dietary consultation placed to evaluate patient's caloric intake and needs. [facility] screen completed this morning. She does not meet any acute criteria for inpatient psychiatric treatment She does appear to be tolerating oral intake without difficulty Laboratory studies have remained stable. Hemoglobin slightly down at 9.9. Electro-lytes and renal function normal. Vital signs are unremarkable. Will discuss continued plan and orders with attending, Dr. Mora 11/21 Overall stable. She is eating and drinking without evidence of difficulty She has not taking any PO pills. Discussed with nursing staff would have to crush meds if ordered Ct Scan recheck of neck yesterday did indicate improvement in edema of the upper thoracic esophagus and thoracic inlet. She was evaluated by speech therapy and is currently tolerating soft diet. Recheck CRP tomorrow morning Hopeful to be able to advance diet further Will discuss further with attending, Dr Watkins 11/20 This is an 86 YO that at some time swallowed a coin, and came to the ED for agitation. On initial exam pt was actually very pleasant and cooperative. She exhibited profound memory loss - C/W H/O dementia. She was not agitated or combative. She had no symptoms or signs of infection or of upper airway compromise. She had the foreign body removed by GI on 11/17 (Apparently a coin). CT soft tissues (Neck) done on 11/18 - showed upper esophageal thickening with narrowing of the lumen. Pt has not had any signs or symptoms of any upper airway compromise at present. Remains afebrile. CT repeated shows less edema of the upper esophagus. Will resume PO feedings with close observation and D/C to [facility] wednesday. Diagnosis 1) S/P Removal of Foreign body on the upper esophagus. Pt has some upper esophageal thickening which is more likely due to inflammation, probably due to the foreign body - Pt apparently has also a hiatal hernia so this could also be related to GERD F/U CT (11/20) "..................................................... Findings: Mild apical emphysema. The parotid and submandibular glands appear normal. No adenopathy identified within the neck. No fluid collections or masses. The esophagus appears similar with a segment containing fluid and debris at the level of the thoracic inlet with acute rightward angulation. The distal esophageal segment is more narrow in caliber compared to the prior study. There is significant, artifact from the patient's pacemaker and external metallic ring on one of the patient's hands making evaluation of this area very difficult. There is less edema in this location however and there is oral contrast seen traversing this region. No evidence of esophageal perforation. No other findings of acute changes from the recent comparison. Impression: Improving edema at the site of prior retained foreign body in the upper thoracic esophagus at the thoracic inlet. There is less distention of the mid to lower thoracic esophagus as well. ...................................................." - CRP was high at 28.4 (0 -9 is normal). - Cotinue with IV PPI - Close observation and monitoring for upper airway patency and possibility of infection, despite the good radiologic progress. - D/C IVF 2) HTN and has bene on Clonidine PO and ARB * - On Clonidine patch with normal BP. 3) Dementia, advanced reported "With behavioral disturbances" on admission but pt has been very calm and cooperative here. Pt has also H.O Bipolar dissorder. No agitation does not appear to be manic or depressed currently so will hold off on Depakote (it is a large pill). - Pt has been on low dose Depakote. Will consider renewing on D/C - Depakote level on admission was not on therepeutic range (50 - 100 usually) 4) Hypernatremia -Resolved. 5) Elevated creatinine on admission, resolved. 6)FULL CODE PER DPOA. 11/21/16 12:38 11/23/16 11:52 11/23/16 11:53 11/23/16 11:55 <Sofía Iqbal - 11/24/16 12:58>
[2016-11-24] MEDS ORDERED: POTASSIUM CHLORIDE 20 MEQ/15 ML ORAL LIQUID PO ONE (12:55)
[2016-11-24] MEDS ORDERED: BISACODYL E.C. 5 MG TABLET PO PRN (13:53)
[2016-11-24] MEDS ORDERED: BISACODYL 10 MG SUPPOSITORY RECTALLY PRN (13:53)
[2016-11-24] MEDS ORDERED: HYDROCODONE/APAP 5mg/325mg TABLET PO PRN (13:53)
[2016-11-24] MEDS ORDERED: ACETAMINOPHEN 325 MG TABLET PO PRN (13:53)
[2016-11-24] MEDS ORDERED: METHYL SALICYLATE/MENTHOL OINT 28gm TP PRN (13:53)
[2016-11-24] MEDS: HYDROCODONE/APAP 5mg/325mg TABLET PO SCH ×2 (15:45→21:17)
[2016-11-24] MEDS: LOSARTAN 100 MG TABLET PO SCH (15:56)
[2016-11-24] MEDS: SYSTANE EYE DROPS 0.7ml EACH EYE SCH ×2 (17:40→21:16)
[2016-11-24] MEDS: DIVALPROEX 125 MG TABLET PO SCH (21:16)
[2016-11-24] MEDS: DOCUSATE SODIUM 100 MG CAPSULE PO SCH (21:17)
[2016-11-24] MEDS ORDERED: MELATONIN 1 MG TABLET PO SCH (22:00)
[2016-11-24] MEDS ORDERED: MIRTAZAPINE 15 MG TABLET PO SCH (22:00)
[2016-11-24] MEDS: QUINIDINE PO SCH (22:02)
[2016-11-24] MEDS: DEXTROMETHORPHAN PO SCH (22:02)
[2016-11-25] MEDS ORDERED: LEVOTHYROXINE 75 MCG TABLET PO SCH (06:30)
[2016-11-25] MEDS: SYSTANE EYE DROPS 0.7ml EACH EYE SCH (08:41)
[2016-11-25] MEDS: HYDROCODONE/APAP 5mg/325mg TABLET PO SCH (08:41)
[2016-11-25] MEDS: DOCUSATE SODIUM 100 MG CAPSULE PO SCH (08:42)
[2016-11-25] MEDS: DIVALPROEX 125 MG TABLET PO SCH (08:42)
[2016-11-25] MEDS: LOSARTAN 100 MG TABLET PO SCH (08:42)
[2016-11-25] MEDS: PANTOPRAZOLE 40 MG INJECTION IV SCH (08:55)
[2016-11-25] MEDS: QUINIDINE PO SCH (08:55)
[2016-11-25] MEDS: DEXTROMETHORPHAN PO SCH (08:55)
[2016-11-25] MEDS ORDERED: LUTEIN 20 MG CAPSULE PO SCH (09:00)
[2016-11-25] MEDS ORDERED: CLONIDINE PATCH REMOVAL TD SCH (09:00)
[2016-11-25] MEDS ORDERED: MEMANTINE 10 MG TABLET PO SCH (09:00)
[2016-11-25] MEDS ORDERED: CLONIDINE 0.1 MG/24 HR PATCH TD SCH (09:00)
--- NOTE | 2016-11-25 10:26 | Progress Note ---
Subjective: F/U: Foreign body in esophagus, esophageal edema Reports burning and discomfort with urination. Bladder scan not showing retention. UA taken with +2 LE. Nursing reports oral intake doing okay-pt not having pain with swallowing. With pt's dementia, difficult to obtain information from her-she wasn't sure if it hurts with swallowing or not. Breathing well. Notes back pain-her chronic pain medications help some. Objective Vital signs: Temp Pulse Resp BP Pulse Ox 96.6 F L 67 16 140/65 H 91 11/25/16 07:49 11/25/16 08:42 11/25/16 07:49 11/25/16 08:42 11/25/16 07:49 Weight: 65.6 kg - Constitutional Present: no acute distress, well nourished, well developed, other (Sleepy during my visit. ) - Routine HEENT Exam Head: Present: normocephalic, atraumatic Eye: Present: EOMI, PERRL ENT: Present: mucous membranes moist - Routine Respiratory Exam Present: CTA bilaterally. Absent: accessory muscle use, rales, respiratory distress, wheezes, crackles - Routine Cardiovascular Exam Present: RRR - Routine Abdominal Exam Present: soft, normoactive bowel sounds, non distended, non tender - Routine Extremities Exam Absent: cyanosis, clubbing, edema - Routine Musculoskeletal Exam Musculoskeletal: no joint swelling - Routine Skin Exam Present: intact. Absent: cyanosis, erythema - Routine Neurological Exam Present: alert, CN II-XII intact. Absent: oriented X3 - Routine Psychiatric Exam Absent: suicidal ideation, homicidal ideation, auditory hallucinations, good insight Results - Labs CBC & Chem 7: 11/24/16 04:30 11/25/16 04:28 Labs: BMP 11/25/16 04:28 Sodium 146 H Potassium 4.1 Chloride 113 H Carbon Dioxide 26 BUN 15.0 Creatinine 1.1 Glucose 86 Calcium 8.7 Urine 11/25/16 Range/Units 09:45 Urine Color Yellow (YELLOW) Urine Clarity Clear Urine pH 6.0 (5.0-8.0) Ur Specific [place] 1.010 L (1.015-1.025) Urine Protein Negative (NEGATIVE) Urine Glucose (UA) Negative (NEGATIVE) Assessment and Plan (1) Esophageal foreign body Problem details: 11/17: Pharygoscopy with removal of round foreign body from esophageal inlet - [place] Current visit: Yes Status: Resolved (2) Esophageal edema Problem details: Secondary to foreign body Current visit: Yes Status: Acute (3) Hypertension Current visit: Yes Status: Chronic (4) Dementia Current visit: Yes Status: Chronic (5) Anemia Current visit: Yes Status: Chronic (6) Hypernatremia Problem details: POA Current visit: Yes Status: Acute (7) Hypokalemia Problem details: Not POA Current visit: Yes Status: Acute (8) Hypothyroidism Current visit: Yes Status: Chronic (9) Osteoarthritis Current visit: Yes Status: Chronic (10) Bipolar affective disorder Current visit: Yes Status: Chronic (11) GERD (gastroesophageal reflux disease) Current visit: Yes Status: Chronic (12) Overweight Current visit: Yes Status: Chronic Assessment and Plan: Check on pending UA - potential UTI. With pt's oral drive stable and not having behaviors that prompted [facility] evaluation, will discharge to her NH. Will need EGD in about 4 weeks - could be done by Dr Duggan or endoscopist of PCP 's choice. Need to stay on Pureed diet until esophageal edema resolves. Will change her Pepcid to Protonix to add increased coverage for GERD - potential could return to H2 blocks post EGD (depending on results). Continue with pt's chronic medications. F/U with PCP in 1 week Recommend recheck BMP in 1 week to assure stability of electrolyes and renal function in light of her medication use. See orders for details. Case discussed with nursing and CM. Time spent with pt care and discharge greater than 35 minutes. Sepsis Assessment - Evaluation Sepsis screening result: No Definite Risk - Focused Exam Vital Signs Temp Pulse Resp BP Pulse Ox 11/25/16 08:42 67 140/65 H 11/25/16 07:49 96.6 F L 67 16 140/65 H 91 11/25/16 04:13 71 16 100/50 93 11/25/16 00:00 96.2 F L 71 16 143/72 H 90 Respiratory exam: Absent: accessory muscle use, stridor, wheezes, crackles Cardiovascular exam: Present: RRR Capillary refill: < 2-3 Seconds Hospital Course Summary Disclaimer: The visit summary below is not to be considered part of the above Progress Note. Hospital Course: 11/25 Reports burning and discomfort with urination. Bladder scan not showing retention. UA taken with +2 LE. Nursing reports oral intake doing okay-pt not having pain with swallowing. With pt's dementia, difficult to obtain information from her-she wasn't sure if it hurts with swallowing or not. Breathing well. Notes back pain-her chronic pain medications help some. Check on pending UA - potential UTI. With pt's oral drive stable and not having behaviors that prompted [facility] evaluation, will discharge to her NH. Will need EGD in about 4 weeks - could be done by Dr Duggan or endoscopist of PCP 's choice. Need to stay on Pureed diet until esophageal edema resolves. Will change her Pepcid to Protonix to add increased coverage for GERD - potential could return to H2 blocks post EGD (depending on results). Continue with pt's chronic medications. F/U with PCP in 1 week Recommend recheck BMP in 1 week to assure stability of electrolyes and renal function in light of her medication use. See orders for details. Case discussed with nursing and CM. Time spent with pt care and discharge greater than 35 minutes. 11/24 Esophageal FB -pain improving -tolerating soft diet Hypokalemia -give K oral liquid Hypernatremia -stop NS 11/23 Requested reevaluation by speech therapy given some concern for appropriate diet. Although diet order does state regular diet, modifiers do indicate Consistency. Dietary consultation placed to evaluate patient's caloric intake and needs. [facility] screen completed this morning. She does not meet any acute criteria for inpatient psychiatric treatment She does appear to be tolerating oral intake without difficulty Laboratory studies have remained stable. Hemoglobin slightly down at 9.9. Electro-lytes and renal function normal. Vital signs are unremarkable. Will discuss continued plan and orders with attending, Dr. Mora 11/21 Overall stable. She is eating and drinking without evidence of difficulty She has not taking any PO pills. Discussed with nursing staff would have to crush meds if ordered Ct Scan recheck of neck yesterday did indicate improvement in edema of the upper thoracic esophagus and thoracic inlet. She was evaluated by speech therapy and is currently tolerating soft diet. Recheck CRP tomorrow morning Hopeful to be able to advance diet further Will discuss further with attending, Dr Watkins 11/20 This is an 86 YO that at some time swallowed a coin, and came to the ED for agitation. On initial exam pt was actually very pleasant and cooperative. She exhibited profound memory loss - C/W H/O dementia. She was not agitated or combative. She had no symptoms or signs of infection or of upper airway compromise. She had the foreign body removed by GI on 11/17 (Apparently a coin). CT soft tissues (Neck) done on 11/18 - showed upper esophageal thickening with narrowing of the lumen. Pt has not had any signs or symptoms of any upper airway compromise at present. Remains afebrile. CT repeated shows less edema of the upper esophagus. Will resume PO feedings with close observation and D/C to [facility] wednesday. Diagnosis 1) S/P Removal of Foreign body on the upper esophagus. Pt has some upper esophageal thickening which is more likely due to inflammation, probably due to the foreign body - Pt apparently has also a hiatal hernia so this could also be related to GERD F/U CT (11/20) "..................................................... Findings: Mild apical emphysema. The parotid and submandibular glands appear normal. No adenopathy identified within the neck. No fluid collections or masses. The esophagus appears similar with a segment containing fluid and debris at the level of the thoracic inlet with acute rightward angulation. The distal esophageal segment is more narrow in caliber compared to the prior study. There is significant, artifact from the patient's pacemaker and external metallic ring on one of the patient's hands making evaluation of this area very difficult. There is less edema in this location however and there is oral contrast seen traversing this region. No evidence of esophageal perforation. No other findings of acute changes from the recent comparison. Impression: Improving edema at the site of prior retained foreign body in the upper thoracic esophagus at the thoracic inlet. There is less distention of the mid to lower thoracic esophagus as well. ...................................................." - CRP was high at 28.4 (0 -9 is normal). - Cotinue with IV PPI - Close observation and monitoring for upper airway patency and possibility of infection, despite the good radiologic progress. - D/C IVF 2) HTN and has bene on Clonidine PO and ARB * - On Clonidine patch with normal BP. 3) Dementia, advanced reported "With behavioral disturbances" on admission but pt has been very calm and cooperative here. Pt has also H.O Bipolar dissorder. No agitation does not appear to be manic or depressed currently so will hold off on Depakote (it is a large pill). - Pt has been on low dose Depakote. Will consider renewing on D/C - Depakote level on admission was not on therepeutic range (50 - 100 usually) 4) Hypernatremia -Resolved. 5) Elevated creatinine on admission, resolved. 6)FULL CODE PER DPOA.
--- NOTE | 2016-11-25 10:50 | Extended Care Facility Orders ---
Admission Orders Admit to:: [facility] Allergies/Adverse Reactions: Allergies zolpidem Allergy (Unknown, Verified 11/19/16 08:37) Admitting Diagnosis: Esophageal Foreign Body - Esophageal edema Admitting Physician: Wei Watkins MD Attending Physician: Dr Sara Velasco Code Status: Full Anticiapted Length of Stay: 30 days or less Rehab Potential: fair Rehab Prognosis: fair Diet: 11/20/16 Dinner Regular Diet [DIET] Diet Modifications: Fluid Consistency: REGLIQU Fluid Restriction: NOREST Food Consistency: PUREE Other Diet Modifiers: 6SMALL Needs Pureed diet due to esophageal edema. May use Facility Protocol or Standing Orders: Yes May have flu vaccine: Yes Evaluations/Treatment: PT (Gen debility due to acute illness ) [facility] Certification: I certify that SNF services are required to be given on an Inpatient basis because of the patients need for [facility] care on a continuing basis for the condition(s) for which he/she received inpatient hospital services prior to his/her transfer to the SNF. SNF inpatient care is necessary for the following reasons Indication for [facility]: Med Admininistration, Other (long-term to monitor oral intake ) - Additional Information Resident is Aware of Diagnosis: No (Dementia limits ) Additional Orders: F/U with PCP in 1 week for reevaluation. BMP in 1 week secondary to medication use. Pureed diet with regular liquids due to esophageal edema. - Will need to stay on pureed diet until esophageal edema resolves. - House nutritional supplement TID. - Encourage feeding. - 6 small meals a day until oral drive returns to normal. - Pureed diet needed due to esophageal edema. --- Regular foods would likely hang up in esophagus. Pt will need EGD with possible dilitation in 4 weeks. -Could be done by Dr Biswas at [facility] [place] or endoscopist of PCP choice
--- NOTE | 2016-11-25 11:33 | Discharge Summary ---
Discharge Information Date of admission: 11/19/16 13:39 Attending Physician: Wei Watkins MD Primary care physician: UNKNOWN Consults: 11/17/16 Dr Biswas - Sx 11/23/16 Generations Screen [CONS] Routine 11/23/16 11:43 Dietary Consult [CONS] Routine Comment: Reason For Exam: ? Eval nutrition intake - Discharge Diagnosis (1) Esophageal foreign body Qualifiers: Encounter type: initial encounter Qualified Code(s): T18.108A - Unspecified foreign body in esophagus causing other injury, initial encounter Problem Details: 11/17: Pharygoscopy with removal of round foreign body from esophageal inlet - [place] Status: Resolved (2) Esophageal edema Problem Details: Secondary to foreign body Status: Acute (3) Hypertension Status: Chronic (4) Dementia Qualifiers: Dementia type: unspecified type Dementia behavioral disturbance: with behavioral disturbance Qualified Code(s): F03.91 - Unspecified dementia with behavioral disturbance Status: Chronic (5) Anemia Qualifiers: Anemia type: unspecified type Qualified Code(s): D64.9 - Anemia, unspecified Status: Chronic (6) Hypernatremia Problem Details: POA Status: Acute (7) Hypokalemia Problem Details: Not POA Status: Acute (8) Hypothyroidism Qualifiers: Hypothyroidism type: acquired Qualified Code(s): E03.9 - Hypothyroidism, unspecified Status: Chronic (9) Osteoarthritis Qualifiers: Osteoarthritis location: multiple joints Osteoarthritis type: primary Qualified Code(s): M15.0 - Primary generalized (osteo)arthritis Status: Chronic (10) Bipolar affective disorder Qualifiers: Active/Remission status: remission status unspecified Qualified Code(s): F31.9 - Bipolar disorder, unspecified Status: Chronic (11) GERD (gastroesophageal reflux disease) Qualifiers: Esophagitis presence: esophagitis presence not specified Qualified Code(s) : K21.9 - Gastro-esophageal reflux disease without esophagitis Status: Chronic (12) Overweight Status: Chronic - Procedures Procedures: 11/17: Pharygoscopy with removal of round foreign body from esophageal inlet - [place] - Laboratory Labs: 11/24/16 04:30 11/25/16 04:28 History of Present Illness HPI: 11/17 Chief Complaint: behavioral changes History of Present Illness Dario Grant is an 86 y/o lady with a hx of advanced dementia, who was brought to [facility] for [facility] clearance for violent behaviors. During workup , she was found to have an esophageal foreign body. Labs showed mild normocytic anemia; hypernatremia, elevated BUN and Cr (28 & 1.5) with unknown baseline, neg UA, and subtherapeutic valproic acid level. Head CT showed atrophy but nothing acute. Dr. Biswas was consulted from the ED - will observe for the time being and take to OR for retrieval tomorrow. She was admitted to [facility] to observation status under the hospitalist service. Given her dementia, she was unable to contribute to HPI, PMH, or ROS. Dario was seen upon arrival to the surgical unit. She was guarded and appeared suspicious, but relaxed after introductions. She stated she occasionally gets some pains in various places of her body but denies other issues. Nursing notes from [facility] report that she refused breakfast this morning. She is not a reliable historian, however, stating that her mother and father are still living. She was in NAD but was requiring 1:1 care. For Complete details of the H&P refer to than document. Of not-it is in the prior [facility] system. Hospital Course Hospital course: 11/17 Placed in OBS - Dr Biswas consulted to do foreign body in esophagus. Underwent pharygoscopy with removal of round foreign body from esophageal inlet. EGD not able to be preformed due to significant esophageal edema. 11/19 Made inpatient due to significant esophageal edema with limits pt's ability to take oral. [employer] computer system changed this day. 11/20 This is an 86 YO that at some time swallowed a coin, and came to the ED for agitation. On initial exam pt was actually very pleasant and cooperative. She exhibited profound memory loss - C/W H/O dementia. She was not agitated or combative. She had no symptoms or signs of infection or of upper airway compromise. She had the foreign body removed by GI on 11/17 (Apparently a coin). CT soft tissues (Neck) done on 11/18 - showed upper esophageal thickening with narrowing of the lumen. Pt has not had any signs or symptoms of any upper airway compromise at present. Remains afebrile. CT repeated shows less edema of the upper esophagus. Will resume PO feedings with close observation and D/C to [facility] wednesday. Diagnosis 1) S/P Removal of Foreign body on the upper esophagus. Pt has some upper esophageal thickening which is more likely due to inflammation, probably due to the foreign body - Pt apparently has also a hiatal hernia so this could also be related to GERD F/U CT (11/20) "..................................................... Findings: Mild apical emphysema. The parotid and submandibular glands appear normal. No adenopathy identified within the neck. No fluid collections or masses. The esophagus appears similar with a segment containing fluid and debris at the level of the thoracic inlet with acute rightward angulation. The distal esophageal segment is more narrow in caliber compared to the prior study. There is significant, artifact from the patient's pacemaker and external metallic ring on one of the patient's hands making evaluation of this area very difficult. There is less edema in this location however and there is oral contrast seen traversing this region. No evidence of esophageal perforation. No other findings of acute changes from the recent comparison. Impression: Improving edema at the site of prior retained foreign body in the upper thoracic esophagus at the thoracic inlet. There is less distention of the mid to lower thoracic esophagus as well. ...................................................." - CRP was high at 28.4 (0 -9 is normal). - Cotinue with IV PPI - Close observation and monitoring for upper airway patency and possibility of infection, despite the good radiologic progress. - D/C IVF 2) HTN and has bene on Clonidine PO and ARB * - On Clonidine patch with normal BP. 3) Dementia, advanced reported "With behavioral disturbances" on admission but pt has been very calm and cooperative here. Pt has also H.O Bipolar dissorder. No agitation does not appear to be manic or depressed currently so will hold off on Depakote (it is a large pill). - Pt has been on low dose Depakote. Will consider renewing on D/C - Depakote level on admission was not on therepeutic range (50 - 100 usually) 4) Hypernatremia -Resolved. 5) Elevated creatinine on admission, resolved. 6)FULL CODE PER DPOA. 11/21 Overall stable. She is eating and drinking without evidence of difficulty She has not taking any PO pills. Discussed with nursing staff would have to crush meds if ordered Ct Scan recheck of neck yesterday did indicate improvement in edema of the upper thoracic esophagus and thoracic inlet. She was evaluated by speech therapy and is currently tolerating soft diet. Recheck CRP tomorrow morning Hopeful to be able to advance diet further Will discuss further with attending, Dr Watkins 11/22 Pt appears to be very stable today. Has been tolerating well PO with non- tickened liquids but sometimes will get a cough. 11/23 Requested reevaluation by speech therapy given some concern for appropriate diet. Although diet order does state regular diet, modifiers do indicate Consistency. Dietary consultation placed to evaluate patient's caloric intake and needs. Generations screen completed this morning. She does not meet any acute criteria for inpatient psychiatric treatment She does appear to be tolerating oral intake without difficulty Laboratory studies have remained stable. Hemoglobin slightly down at 9.9. Electro-lytes and renal function normal. Vital signs are unremarkable. Will discuss continued plan and orders with attending, Dr. Mora 11/24 Esophageal FB -pain improving -tolerating soft diet Hypokalemia -give K oral liquid Hypernatremia -stop NS 11/25 Reports burning and discomfort with urination. Bladder scan not showing retention. UA taken with +2 LE. Nursing reports oral intake doing okay-pt not having pain with swallowing. With pt's dementia, difficult to obtain information from her-she wasn't sure if it hurts with swallowing or not. Breathing well. Notes back pain-her chronic pain medications help some. UA obtains showing no charlie virgie evidence of UTI. With pt's oral drive stable and not having behaviors that prompted Generations evaluation, will discharge to her NH. Will need EGD in about 4 weeks - could be done by Dr Duggan or endoscopist of PCP 's choice. Need to stay on Pureed diet until esophageal edema resolves. Will change her Pepcid to Protonix to add increased coverage for GERD - potential could return to H2 blocks post EGD (depending on results). Continue with pt's chronic medications. F/U with PCP in 1 week Recommend recheck BMP in 1 week to assure stability of electrolyes and renal function in light of her medication use. See orders for details. Case discussed with nursing and CM. Time spent with pt care and discharge greater than 35 minutes. Above narrative is a brief summary of pt's hospital course. For Complete details of the hospital coarse, refer to the medical record. DVT Prophylaxis: SCD's GI Prophylaxis: Protonix Discharge Plan - Med Rec/Dispo Referrals/Follow Up: Sara Bates [Other] Lynn Instructions: Esophageal Foreign Body (GEN) Prescriptions: New Pantoprazole Sodium [Protonix] 1 tab PO ACB #30 tab Hydrocodone/APAP 5/325 [[place] 5/325] 1 tab PO TID #90 Continue cloNIDine HCl [Clonidine HCl] 0.1 mg PO BID PRN #0 tab PRN Reason: INCREASED BLOOD PRESSURE Levothyroxine Sodium 75 mcg PO ACB #0 tab Lutein 20 mg PO DAILY #0 Propylene Glycol/Peg 400 [Systane 0.3-0.4% Eye Drops] 1 drop EACH EYE QID #0 Memantine HCl [Namenda Xr] 28 mg PO DAILY #0 cap Potassium Chloride 20 meq PO WB #0 cap Docusate Sodium 100 mg PO BID #0 Bisacodyl [Dulcolax] 1 supp RECTALLY DAILY PRN #0 supp PRN Reason: PRN ORDERS Magnesium Hydroxide [Milk of Magnesia] 30 ml PO DAILY PRN #0 PRN Reason: Constipation Mirtazapine [Remeron] 7.5 mg PO HS #0 tab Losartan Potassium 100 mg PO DAILY #0 tab Acetaminophen [Mapap] 650 mg PO Q4HR PRN #0 tab PRN Reason: PAIN/FEVER Methyl Salicylate/Menthol [Icy Hot Cream] 1 applic TOP BID PRN #0 PRN Reason: PRN ORDERS Divalproex Sodium [Depakote] 125 mg PO BID #0 cloNIDine HCl [Clonidine HCl] 0.1 mg PO DAILY #0 tab Dextromethorphan/Quinidine [Nuedexta] 1 cap PO BID #0 Melatonin/Pyridoxine [Melatonin 3 mg Tablet] 3 mg PO HS #0 [place] 5-325 Tablet 1 tab PO Q6H PRN #30 PRN Reason: Pain Discontinued Famotidine 20 mg PO DAILY #0 tab Bisacodyl 10 mg PO DAILY #0 - Disposition 03 To [facility] ([facility])
[2016-11-25] MEDS ORDERED: FAMOTIDINE 20 MG TABLET PO SCH (22:00)
== END 2016-11-25 16:19 | DRG 394 ==
LOC: SRG 15:28 → EDSTATUS 15:28 → SUR 11-18 21:45 → SRG 11-19 13:39
PROVIDERS: ADMIT Internal Medicine; ATTEND Internal Medicine